=== PATIENT | female | born 1975 ===

== ENCOUNTER 2021-08-11 06:09 | Day surgery (SDC) | payer OTHER ==
[~2021-08-11 06:09] MED LIST: SYNTHROID100 MCG PO; SYNTHROID125 MCG PO
== END 2021-08-11 14:20 | disposition home or self-care (01) ==
LOC: CIR.AMB 06:09
PROVIDERS: ATTEND Specialist
DX: N85.2 Hypertrophy of uterus (principal); Z20.822 Contact with and (suspected) exposure to COVID-19; Z86.16 Personal history of COVID-19; Z85.850 Personal history of malignant neoplasm of thyroid; J32.8 Other chronic sinusitis; E66.9 Obesity, unspecified